=== PATIENT | male | born 1970 | race Caucasian/White ===

== ENCOUNTER 2016-11-19 15:42 | Emergency (ER) | payer OTHER ==
[~2016-11-19] VITALS: Ht 185.4 cm; Wt 106.6 kg
[2016-11-19 16:05] VITALS: BP 137/89
--- NOTE | 2016-11-19 16:36 | PHYS DOC ---
Past Medical History Past Medical History: Hypertension, Other Additional Past Medical Histor: chronic lower back pain Past Surgical History: Other Additional Past Surgical Histo: bilat hernia Additional Information: Chews tobacco daily Alcohol Use: Occasionally Drug Use: None Adult General Chief Complaint Chief Complaint: LOWER EXT PAIN [facility] HPI Patient is a 46 year old male with history of hypertension who presents today complaining of left calf pain that began on Thursday last week. Patient states he is concerned about DVT and would like a Doppler. Patient denies any history of smoking. Denies any previous history of DVTs for himself or family. Denies any chest pain or shortness of breath. Patient states he travels frequently most by air. He states he he arrived today from [place] by car which is a four hour ride. Review of Systems Review of Systems Constitutional: Denies fever or chills [] Eyes: Denies change in visual acuity, redness, or eye pain [] HENT: Denies nasal congestion or sore throat [] Respiratory: Denies cough or shortness of breath [] Cardiovascular: No additional information not addressed in HPI [] GI: Denies abdominal pain, nausea, vomiting, bloody stools or diarrhea [] : Denies dysuria or hematuria [] Musculoskeletal: left calf pain Integument: Denies rash or skin lesions [] Neurologic: Denies headache, focal weakness or sensory changes [] Endocrine: Denies polyuria or polydipsia [] Current Medications Current Medications Current Medications Medications (Trade) Dose Ordered Sig/Nohemi Start Time Stop Time Status Last Admin Dose Admin Enoxaparin Sodium (Lovenox 120mg Syringe) 107 mg 1X ONCE 11/19/16 18:30 11/19/16 18:31 Allergies Allergies Allergies Coded Allergies Type Severity Reaction Last Updated Verified No Known Drug Allergies 11/19/16 No Physical Exam Physical Exam Constitutional: Well developed, well nourished, no acute distress, non-toxic appearance. [] HENT: Normocephalic, atraumatic, bilateral external ears normal, oropharynx moist, no oral exudates, nose normal. [] Eyes: PERRLA, EOMI, conjunctiva normal, no discharge. [] Neck: Normal range of motion, no tenderness, supple, no stridor. [] Cardiovascular:Heart rate regular rhythm, no murmur [] Lungs & Thorax: Bilateral breath sounds clear to auscultation [] Abdomen: Bowel sounds normal, soft, no tenderness, no masses, no pulsatile masses. [] Skin: Warm, dry, no erythema, no rash. [] Back: No tenderness, no CVA tenderness. [] Extremities: Left lower extremity with no obvious edema or ecchymosis, no erythema. Positive left Homans sign to the left lower extremity. +2 left pedal pulse. Cap refill less than 2 seconds left lower extremity Neurologic: Alert and oriented X 3, normal motor function, normal sensory function, no focal deficits noted. [] Psychologic: Affect normal, judgement normal, mood normal. [] Current Patient Data Vital Signs Vital Signs Date Time Temp Pulse Resp B/P (MAP) Pulse Ox O2 Delivery O2 Flow Rate FiO2 11/19/16 16:05 98.2 91 17 97 Room Air 98.2 EKG EKG [] Radiology/Procedures Radiology/Procedures [] Course & Med Decision Making Course & Med Decision Making Pertinent Labs and Imaging studies reviewed. (See chart for details) Patient is in the ED with complaints of left calf pain since Thursday last week. He just arrived in [place] from [place] by vehicle this is a four hour car ride. Vitals on arrival to the ED blood pressure 137/89, heart rate 91 , respirations 17, temperature 98.2. Venous Doppler of the left lower extremity was noted for occlusive thrombus in the posterior tibial veins and gastric anemias vein Consulted with Dr. Miller. She stated if patient has good insurance and is compliant he can be started on Lovenox today in the ED and discharged with Eliquis 10 mg BID X7 days then 5 mg BID X 3 months. Patient has medical insurance. Patient is very compliant. He states he'll do anything we tell him to do. He was given Lovenox in the ED and discharged with Eliquis. Yolie Disclaimer Dragon Disclaimer This electronic medical record was generated, in whole or in part, using a voice recognition dictation system. Departure Departure Impression: Primary Impression: Left leg DVT Disposition: HOME, SELF-CARE Condition: STABLE Referrals: UNKNOWN PCP NAME (PCP) Follow-up with your doctor as soon as you get back to [place] Patient Instructions: Deep Vein Thrombosis Additional Instructions: You have a blood clots in the left lower extremity. We gave you Lovenox in the ED. This is a blood thinner. We discharged you on Eliquis. Take it as prescribed. Please contact your primary care doctor and set up a follow-up appointment as soon as you get back home. They need to repeat the ultrasound in the next 3-6 weeks to see if the blood clots have cleared up. Please come back to the emergency room if you have any chest pain shortness of breath, bloody stools, vomiting blood or if you have any concerning symptoms. You can call us in the ED with any questions regarding your medical condition. DO NOT DRIVE OR OPERATE MACHINERY ON HYDROCODONE. Scripts Hydrocodone/Apap 5-325 (NORCO 5-325 TABLET) 1 Each Tablet 1-2 TAB PO Q4-6HRS, #40 TAB Prov: REGGIE KNAPP APRN 11/19/16 Apixaban (ELIQUIS) 5 Mg Tablet 10 MG PO BID, #194 TAB 10 MG BID FOR 7 DAYS THEN 5 MG BID FOR 3 MONTHS Prov: REGGIE KNAPP APRN 11/19/16 Problem Qualifiers Primary Impression: Left leg DVT Affected thrombotic vein of extremity: tibial Chronicity: acute Qualified Codes: I82.442 - Acute embolism and thrombosis of left tibial vein REGGIE KNAPP APRN Nov 19, 2016 16:36
--- NOTE | 2016-11-19 17:17 | RAD ---
Indication: Left calf pain. Grayscale, color-flow and duplex Doppler evaluation of the left lower extremity deep venous system was performed. The left lower extremity deep venous system demonstrates normal compressibility with normal response to augmentation and Valsalva. There is occlusive thrombus identified in the proximal and mid posterior tibial veins. Occlusive thrombus is seen in the gastrocnemius vein. IMPRESSION: 1. No evidence of left lower extremity DVT. 2. Occlusive thrombus in the posterior tibial veins and gastrocnemius vein. Electronically signed by: Surendra Allen MD (11/19/2016 5:14 PM) [facility]
[2016-11-19] MEDS ORDERED: HYDR-971 PO (18:33)
[2016-11-19] MEDS ORDERED: APIX5TAB PO (18:33)
== END 2016-11-19 18:45 | disposition home or self-care (01) ==
LOC: ER 15:42
DX: I82.402 Acute embolism and thrombosis of unspecified deep veins of left lower extremity (principal); I10 Essential (primary) hypertension; G89.29 Other chronic pain; F17.220 Nicotine dependence, chewing tobacco, uncomplicated
CPT/HCPCS: 93971; 96372; 99284; J1650